=== PATIENT | male | born 1995 | race Caucasian/White ===

== ENCOUNTER 2020-09-06 13:19 | Emergency (ER) | payer MEDICAID ==
[~2020-09-06] VITALS: Ht 185.4 cm; Wt 88.5 kg
--- NOTE | 2020-09-06 13:20 | NUR ---
sumeet and placed in waiting room
[2020-09-06 13:27] VITALS: BP_SYST 126
--- NOTE | 2020-09-06 14:10 | NUR ---
Pt walked in to ER with c/o chest pain 7 x3 days, pt was recently seen at an [facility] and told to f/u with cardiology. EKG done in triage and given to MD. V/S stable, no acute distress noted.
--- NOTE | 2020-09-06 14:12 | NUR ---
Dr. Richardson evaluating pt at this time
[2020-09-06 14:58] LABS: BASOPHILS # (AUTO) 0.1 K/uL (0.0-0.2); EOSINOPHILS % (AUTO) 0.4 % (0.0-4.0); HEMATOCRIT 45.9 % (36-54); LYMPHOCYTES # (AUTO) 1.5 K/uL (1.0-5.5); MEAN CORPUSCULAR HEMOGLOBIN 32 pg (27-31); MEAN CORPUSCULAR HGB CONC 35 % (32-36); MEAN CORPUSCULAR VOLUME 91 fL (79.0-98.0); MONOCYTES # (AUTO) 0.7 K/uL (0.0-1.0); MONOCYTES % (AUTO) 7.3 % (1.7-9.3); NEUTROPHILS # (AUTO) 6.7 K/uL (1.8-7.7); NEUTROPHILS % (AUTO) 74.3 % (40.0-70.0); PLATELET COUNT (AUTO) 232 K/uL (130-430); RED BLOOD CELL COUNT(AUTO) 5.03 MIL/uL (4.2-6.2); RED CELL DISTRIBUTION WIDTH 13.1 % (9.0-15.0)
--- NOTE | 2020-09-06 15:00 | NUR ---
pt getting labs drawn
[2020-09-06 15:16] LABS: CALCIUM 8.9 mg/dL (8.4-11.0); CREATININE 1.08 mg/dL (0.55-1.30); POTASSIUM 3.9 mmol/L (3.5-5.1)
[2020-09-06 15:20] LABS: TOTAL BILIRUBIN 0.6 mg/dL (0.0-1.0)
[2020-09-06] MEDS ORDERED: OMEP-268 PO (16:17)
[2020-09-06] MEDS ORDERED: ALBMDI INH ×2 (16:30→19:36)
--- NOTE | 2020-09-06 16:35 | NUR ---
Patient given written and verbal discharge instructions and verbalizes understanding. ER MD discussed with patient the results and treatment provided. Patient in stable condition. ID arm band removed. Rx of Omeparzole given. Patient educated on pain management and to follow up with PMD. Pain Scale 0/10. Opportunity for questions provided and answered. Medication side effect fact sheet provided.
[2020-09-06 16:40] VITALS: BP_SYST 126
== END 2020-09-06 16:35 | disposition home or self-care (01) ==
LOC: SED 13:19
DX: K20.90 Esophagitis, unspecified without bleeding (principal); J45.909 Unspecified asthma, uncomplicated; Z79.899 Other long term (current) drug therapy
CPT/HCPCS: 36415; 71045; 80053; 84484; 85025; 93005; 99285

== ENCOUNTER 2020-09-06 17:04 | Emergency (ER) | payer MEDICAID ==
[~2020-09-06] VITALS: Ht 172.7 cm; Wt 74.8 kg
[~2020-09-06 17:04] MED LIST: ALBMDI INH; OMEP-268 PO
[2020-09-06 17:15] VITALS: BP_SYST 122
[2020-09-06 18:02] LABS: AMYLASE 45 U/L (0-100); LIPASE 55 U/L (73-393)
[2020-09-06 18:03] LABS: INR 0.9 (0.80-1.20); PROTHROMBIN TIME 9.5 SECS (9.5-12.5)
[2020-09-06] MEDS ORDERED: ALBMDI INH (19:36)
[2020-09-06 19:39] VITALS: BP_SYST 126
== END 2020-09-06 19:30 | disposition home or self-care (01) ==
LOC: SED 17:04
DX: K92.1 Melena (principal); J45.909 Unspecified asthma, uncomplicated; Z79.899 Other long term (current) drug therapy
CPT/HCPCS: 36415; 76376; 82150; 83690; 85610-TC; 85730-TC; 99284